=== PATIENT | male | born 1975 | race Caucasian/White ===

== ENCOUNTER 2017-01-28 15:15 | Emergency (ER) | payer OTHER ==
[~2017-01-28] VITALS: Ht 160 cm; Wt 53.0 kg
[~2017-01-28 15:15] MED LIST: CARB6.5S5 RIGHT EAR; OMEP20TA39 PO
[2017-01-28 15:30] VITALS: BP 163/118; PULSE 112; RESP 16; TEMP 98.5; O2SAT 96
[2017-01-28] MEDS ORDERED: IBUP200C PO (15:31)
[2017-01-28] MEDS ORDERED: OMEP20TA PO (15:39)
[2017-01-28] MEDS ORDERED: LORazepam 2 MG/ML VIAL IV PUSH ONE (15:45)
[2017-01-28] MEDS ORDERED: SODIUM CHLOR 0.9% 1000 ML INJ 1,000 ML IV ONE ×2 (15:45→16:45)
[2017-01-28 15:57] LABS: AUTOMATED NEUTROPHIL # 5.7 TH/MM3 (1.8-7.7); BASOPHIL # 0.1 TH/MM3 (0-0.2); BASOPHIL % 0.8 % (0.0-2.0); EOSINOPHIL # 0.1 TH/MM3 (0-0.4); EOSINOPHIL % 1.6 % (0.0-4.0); HEMATOCRIT 50.1 % (39.0-51.0); LYMPH % 15.2 % (9.0-44.0); LYMPHOCYTE # 1.2 TH/MM3 (1.0-4.8); MEAN CELL VOLUME 96.1 FL (80.0-100.0); MEAN CORPUSCULAR HEMOGLOBIN 31.7 PG (27.0-34.0); MONO % 10.5 % (0.0-8.0); NEUT % 71.9 % (16.0-70.0); PLATELET COUNT 249 TH/MM3 (150-450); RED BLOOD COUNT 5.21 MIL/MM3 (4.50-5.90); WHITE BLOOD COUNT 7.9 TH/MM3 (4.0-11.0)
[2017-01-28 16:06] LABS: CHLORIDE 103 MEQ/L (98-107); HEMO FLAGS DIFF FINAL; POTASSIUM 3.4 MEQ/L (3.5-5.1); SODIUM (NA) 140 MEQ/L (136-145)
--- NOTE | 2017-01-28 16:06 | PD ---
HPI Chief Complaint: Cardiac Complaint Time Seen by Provider: 15:30 Travel History International Travel<30 days: No Contact w/Intl Traveler<30days: No Traveled to known affect area: No History of Present Illness HPI This is a 42-year-old male who presents to the emergency department with palpitations abdomen going on intermittently for the past week, described as feeling like his heart is racing and hearing his heart beat in his years, constant, moderate severity. He denies any associated chest pain, shortness of breath, lightheadedness or dizziness. He says he's been having these symptoms intermittently for the past year. He's been trying to get into a primary care physician but currently is having some insurance troubles. His boss at work and convinced him to come to be evaluated today. He does say he drinks alcohol every day anywhere from 1-3 drinks per night. The last drink he had was yesterday. He thinks he has lost some weight is he's had less appetite recently. He says he's been working excessive amounts of hours at his job and he is under a lot of stress. PFSH Past Medical History Asthma: Yes Cancer: No Cardiovascular Problems: Yes (borderline htn takes no meds) Cerebrovascular Accident: No Diabetes: No Endocrine: No Gastrointestinal Disorders: Yes (OCCAS ACID REFLUX ) GERD: Yes Genitourinary: No Hepatitis: No Hiatal Hernia: No Immune Disorder: No Musculoskeletal: No Neurologic: No Psychiatric: No Reproductive: No Respiratory: Yes (ASTHMA) Immunizations Current: Yes Myocardial Infarction: No Thyroid Disease: No Past Surgical History Abdominal Surgery: Yes (INCISIONAL HERNIA REPAIR; ABDOMINAL SX INFANT) AICD: No Cardiac Surgery: No Ear Surgery: No Endocrine Surgery: No Eye Surgery: Yes (MULTIPLE LEFT EYE + ONE RIGHT EYE STRABISMUS SURGERY) Genitourinary Surgery: No Joint Replacement: No Oral Surgery: No Pacemaker: No Thoracic Surgery: No Other Surgery: Yes Social History Alcohol Use: Yes (2 glasses nightly) Tobacco Use: No Substance Use: No Allergies-Medications (Allergen,Severity, Reaction): Coded Allergies: Penicillin (Verified Allergy, Mild, RASH, 01/28/17) Reported Meds & Prescriptions Reported Meds & Active Scripts Active Reported Omeprazole 20 Mg Tab 20 Mg PO DAILY Ibuprofen 200 Mg Cap 200 Mg PO Q4H PRN Review of Systems Except as stated in HPI: all other systems reviewed are Neg Physical Exam Narrative GENERAL:Well appearing, no acute distress SKIN: Urticarial rash on the upper and lower extremities which the patient reports is intermittent and chronic HEAD: Atraumatic. Normocephalic. EYES: Pupils equal and round. No injection or drainage. ENT: Moist mucous membranes NECK: Trachea midline. No obvious thyromegaly. CARDIOVASCULAR: Tachycardic. No murmur appreciated. RESPIRATORY: Clear to auscultation. Breath sounds equal bilaterally. GASTROINTESTINAL: Abdomen soft, non-tender, nondistended. MUSCULOSKELETAL: No obvious deformities. NEUROLOGICAL: Awake and alert. No obvious cranial nerve deficits. Moving all extremities. PSYCHIATRIC: Appropriate mood and affect; insight and judgment normal. Data Data Last Documented VS Vital Signs Date Time Temp Pulse Resp B/P Pulse Ox O2 Delivery O2 Flow Rate FiO2 01/28/17 15:40 112 16 96 Room Air 01/28/17 15:30 98.5 163/118 Orders Complete Blood Count With Diff (01/28/17 15:39) Comprehensive Metabolic Panel (01/28/17 15:39) Troponin I (01/28/17 15:39) Magnesium (Mg) (01/28/17 15:39) Thyroid Stimulating Hormone (01/28/17 15:39) ^ Insert Iv (01/28/17 15:39) Sodium Chlor 0.9% 1000 Ml Inj (Ns 1000 M (01/28/17 15:45) Lorazepam Inj (Ativan Inj) (01/28/17 15:45) Labs Laboratory Tests Test 01/28/17 15:40 White Blood Count 7.9 TH/MM3 Red Blood Count 5.21 MIL/MM3 Hemoglobin 16.5 GM/DL Hematocrit 50.1 % Mean Corpuscular Volume 96.1 FL Mean Corpuscular Hemoglobin 31.7 PG Mean Corpuscular Hemoglobin 33.0 % Concent Red Cell Distribution Width 14.0 % Platelet Count 249 TH/MM3 Mean Platelet Volume 8.1 FL Neutrophils (%) (Auto) 71.9 % Lymphocytes (%) (Auto) 15.2 % Monocytes (%) (Auto) 10.5 % Eosinophils (%) (Auto) 1.6 % Basophils (%) (Auto) 0.8 % Neutrophils # (Auto) 5.7 TH/MM3 Lymphocytes # (Auto) 1.2 TH/MM3 Monocytes # (Auto) 0.8 TH/MM3 Eosinophils # (Auto) 0.1 TH/MM3 Basophils # (Auto) 0.1 TH/MM3 CBC Comment DIFF FINAL Differential Comment Sodium Level 140 MEQ/L Potassium Level 3.4 MEQ/L Chloride Level 103 MEQ/L Carbon Dioxide Level 25.0 MEQ/L Anion Gap 12 MEQ/L Blood Urea Nitrogen 12 MG/DL Creatinine 1.40 MG/DL Estimat Glomerular Filtration 55 ML/MIN Rate Random Glucose 111 MG/DL Calcium Level 9.7 MG/DL Magnesium Level 2.1 MG/DL Total Bilirubin 1.1 MG/DL Aspartate Amino Transf 22 U/L (AST/SGOT) Alanine Aminotransferase 32 U/L (ALT/SGPT) Alkaline Phosphatase 95 U/L Troponin I LESS THAN 0.02 NG/ML Total Protein 7.4 GM/DL Albumin 4.3 GM/DL Thyroid Stimulating Hormone 0.879 uIU/ML 3rd Gen [facility] Medical Decision Making Medical Screen Exam Complete: Yes Emergency Medical Condition: Yes Interpretation(s) Afebrile, tachycardia, hypertensive No leukocytosis Mild hypokalemia Troponin is normal Creatinine is 1.4 with a GFR 55 TSH is normal EKG demonstrates sinus tachycardia Differential Diagnosis Arrhythmia, electrolyte abnormality, anemia, alcohol withdrawal, hyperthyroidism Narrative Course This is a 42-year-old male who presents to the emergency department with palpitations that have been going on for 1 month. He was placed on a monitor and an IV was established. EKG demonstrates sinus tachycardia. He was given 2 L of IV hydration. Labs were obtained which demonstrate some mild renal insufficiency but are otherwise reassuring. I did give the patient a small dose of Ativan because he has a history of daily alcohol use. I suspect his symptoms are in the setting of dehydration and early alcohol withdrawal. I reiterated the need for him to follow up with a primary care physician. I think the patient is appropriate for outpatient management and I don't suspect a life-threatening etiology of his palpitations at this time. Diagnosis Primary Impression: Dehydration Patient Instructions: General Instructions Additional Instructions: If you develop severe chest pain, shortness of breath, sweating, lightheadedness , dizziness or difficulty breathing return to the emergency department immediately. Followup with your primary care physician without fail. You should have your kidney function rechecked. Med/Other Pt SpecificInfo: No Change to Meds Disposition: 01 DISCHARGE HOME Condition: Stable Highet,Angelica H. MD Jan 28, 2017 16:06
[2017-01-28 16:09] LABS: ANION GAP 12 MEQ/L (5-15); BLOOD UREA NITROGEN 12 MG/DL (7-18); MAGNESIUM 2.1 MG/DL (1.5-2.5)
[2017-01-28 16:12] LABS: ALT (GPT) 32 U/L (12-78); AST (GOT) 22 U/L (15-37)
[2017-01-28 16:13] LABS: GLOMERULAR FILTRATION RATE 55 ML/MIN (>89)
[2017-01-28 16:14] LABS: TOTAL BILIRUBIN ADULT 1.1 MG/DL (0.2-1.0)
[2017-01-28 16:15] LABS: ALKALINE PHOSPHATASE 95 U/L (45-117)
[2017-01-28 16:22] VITALS: BP 165/105; PULSE 106; RESP 16; O2SAT 97
[2017-01-28 17:22] VITALS: BP 152/93; PULSE 97; RESP 16; O2SAT 97
[2017-01-28 18:22] VITALS: BP 161/101; PULSE 97; RESP 16; O2SAT 99
--- NOTE | 2017-01-28 22:28 | EKG ---
Date Performed: 01/28/2017 Time Performed: 15:29:04 PTAGE: 42 years EKG: Sinus tachycardia Normal ECG except for rate NO PREVIOUS TRACING DOCTOR: Kassy Ovalle Interpretating Date/Time 01/28/2017 22:26:51
== END 2017-01-28 18:47 | disposition home or self-care (01) ==
LOC: PHED 15:15
DX: E86.0 Dehydration (principal); N28.9 Disorder of kidney and ureter, unspecified; R00.0 Tachycardia, unspecified; R00.2 Palpitations; K21.9 Gastro-esophageal reflux disease without esophagitis
CPT/HCPCS: 80053; 83735; 84443; 84484; 85025; 93005; 96361; 96374; 99285; J2060; J7030

== ENCOUNTER 2018-03-21 10:28 | Emergency (ER) | payer OTHER ==
[~2018-03-21] VITALS: Ht 160 cm; Wt 55.0 kg
[~2018-03-21 10:28] MED LIST changes: -CARB6.5S5 RIGHT EAR; +IBUP200C PO; -OMEP20TA39 PO; +OMEP20TA93 PO
[2018-03-21 10:31] VITALS: BP 178/122; PULSE 110; RESP 20; TEMP 98; O2SAT 98
[2018-03-21] MEDS ORDERED: DEXAMETHASONE SOD PHOS 4 MG/ML VIAL IM ONE (11:00)
[2018-03-21] MEDS ORDERED: PRED20 PO (11:01)
--- NOTE | 2018-03-21 11:01 | PD ---
HPI Chief Complaint: Skin Problem Time Seen by Provider: 10:48 Travel History International Travel<30 days: No Contact w/Intl Traveler<30days: No Traveled to known affect area: No History of Present Illness HPI This is a 43-year-old male here with a rash to his arms and trunk ongoing for over a month. No difficulty swallowing, change in voice, wheezing. He reports the rash worsens after being in the heat. Benadryl slightly improved symptoms. Denies any change in medications, body products, detergents. Symptom severity is mild to moderate. PFSH Past Medical History Asthma: Yes Cancer: No Cardiovascular Problems: Yes (borderline htn takes no meds) Cerebrovascular Accident: No Diabetes: No Endocrine: No Gastrointestinal Disorders: Yes (OCCAS ACID REFLUX ) GERD: Yes Genitourinary: No Hepatitis: No Hiatal Hernia: No Immune Disorder: No Musculoskeletal: No Neurologic: No Psychiatric: No Reproductive: No Respiratory: Yes (ASTHMA) Immunizations Current: Yes Myocardial Infarction: No Thyroid Disease: No Past Surgical History Abdominal Surgery: Yes (INCISIONAL HERNIA REPAIR; ABDOMINAL SX INFANT) AICD: No Cardiac Surgery: No Ear Surgery: No Endocrine Surgery: No Eye Surgery: Yes (MULTIPLE LEFT EYE + ONE RIGHT EYE STRABISMUS SURGERY) Genitourinary Surgery: No Joint Replacement: No Oral Surgery: No Pacemaker: No Thoracic Surgery: No Other Surgery: Yes Social History Alcohol Use: Yes (DAILY) Tobacco Use: No Substance Use: No Allergies-Medications (Allergen,Severity, Reaction): Coded Allergies: penicillin G (Unverified Allergy, Mild, RASH, 03/21/18) Reported Meds & Prescriptions Reported Meds & Active Scripts Active Reported Omeprazole 20 Mg Tab 20 Mg PO DAILY Review of Systems Except as stated in HPI: all other systems reviewed are Neg General / Constitutional: No: Fever Eyes: No: Visual changes HENT: No: Headaches Cardiovascular: No: Chest Pain or Discomfort Respiratory: No: Shortness of Breath Gastrointestinal: No: Abdominal Pain Genitourinary: No: Dysuria Musculoskeletal: No: Pain Skin: Positive Rash Physical Exam Narrative GENERAL: Alert and well-appearing 43-year-old male SKIN: Warm and dry. Erythematous plaque-like lesions to the upper extremities which is consistent with plaque psoriasis HEAD: Normocephalic. EYES: No injection or drainage. ENT: No pharyngeal erythema. Uvula is midline. Airways patent. NECK: Supple, trachea midline. CARDIOVASCULAR: Regular rate and rhythm without murmurs, gallops, or rubs. RESPIRATORY: Breath sounds equal bilaterally. No accessory muscle use. GASTROINTESTINAL: Abdomen soft, non-tender, nondistended. MUSCULOSKELETAL: No cyanosis, or edema. BACK: Nontender without obvious deformity. No CVA tenderness. Data Data Last Documented VS Vital Signs Date Time Temp Pulse Resp B/P (MAP) Pulse Ox O2 Delivery O2 Flow Rate FiO2 03/21/18 10:31 98.0 110 20 178/122 (140) 98 Orders Orders Dexamethasone Inj (Decadron Inj) (03/21/18 11:00) MDM Medical Decision Making Medical Screen Exam Complete: Yes Emergency Medical Condition: Yes Differential Diagnosis Plaque psoriasis, contact dermatitis, other Narrative Course 43-year-old male here with a rash which is consistent with plaque psoriasis. He was given a shot of Decadron. Discharged home with oral steroids and Benadryl. Referred to follow-up with try out person Diagnosis Primary Impression: Psoriasis Referrals: Party Supply Specialist Departure Forms: Tests/Procedures, Work Release Enter return to work date: March 31, 2018 Additional Instructions: Benadryl 25-50 mg every 6 hours for itching Medication as directed. Follow-up with a try out person. Scripts Prednisone (Prednisone) 20 Mg Tab 40 MG PO DAILY, #10 TAB 0 Refills Take 40 mg (2 tablets) daily for 5 days Prov: Carmen Cuello 03/21/18 Disposition: 01 DISCHARGE HOME Condition: Stable Carmen Cuello March 21, 2018 11:01
== END 2018-03-21 11:11 | disposition home or self-care (01) ==
LOC: PHEFT 10:28
DX: L40.9 Psoriasis, unspecified (principal); J45.909 Unspecified asthma, uncomplicated; I10 Essential (primary) hypertension; K21.9 Gastro-esophageal reflux disease without esophagitis
CPT/HCPCS: 99283; J1100